=== PATIENT | female | born 1990 | race Caucasian/White ===

== ENCOUNTER 2017-06-20 15:17 | Inpatient (IN) | payer OTHER ==
[2017-06-20] MEDS ORDERED: NOREPINEPHRINE BITARTRATE 4,000 MCG in DEXTROSE 5%-WATER - 496 ML IV SCH (15:30)
--- NOTE | 2017-06-20 15:44 | CON.ID ---
Consult Consult Specialty:: infectious diseases Reason for Consultation:: meningitis - History of Present Illness History of Present Illness: 26 y/o young lady with a hx. of alopecia areata 12 years ago and ADHD, she was taking phenteramine/topamax off and on for weight loss and sertraline sporadically, was on BCP d/sergio a few weeks ago, last week oestrogen coated IUD placed. Pt. lived in [place] until January when she had her wedding, travelled to [place] for her honeymoon and settled in [place], [place]. This past Thursday she went hiking with her , woke up on Thursday with a diffuse, mild headach, towards the afternoon noted by to be confused but recovered, on Thursday noted yto be more confused, had several bouts of vomiting and was ataxic- taken to [facility] where she had a seizure and was subsequently intiubated/vented. On 06/18(from review of hospital notes) investigations and hospital course was as follows, the dx. being considered were viral encephalitis PRES.: 1) CSF- WBC-3, RBCs-4285, Protein-419, Glucose-83. 2) MRI C-spine 06/19- Cerebellar tonsils are herniated into the cervicomedullary junction with edema of the cord and central T2 hyperintensitylikely ischemia related to compression. 3) CT head- 06/18-diffuse cerebral edema with complete sulcal effacement and effacement of suprasellar cistern, quadrigeminal plate and fourth ventricle. Findings have progressed significantly from 06/07 and compared to MRI performed 5 hours prior to this study. 4) CT Angiogram 06/18-Diffuse cerebral edema with no blood flow seen in either intracranial internal carotid artery or in post. circulation. 5) NM perfusion scan 06/19 documented in a family meeting as"no flow c/w brain ". -Pt. transferred to this hospital by air ambulance for further care, discussed the case with neurosurgery and the thought process with meningitis is pres syndrome repeat ct scan looked at which shows diffuse edema of the brain plan is to do a ventriculostomy had a detailed discussion with the family about the sequence of events and the symptoms that followed patient received multiple abx including vanco and acylovir at the previous facility - History Source History Provided By: Family Member Limitations to Obtaining History: Clinical Condition Home Medications - Allergies Allergies/Adverse Reactions: Allergies Allergy/AdvReac Type Severity Reaction Status Date / Time Penicillins Allergy Rash Verified 06/20/17 18:13 - Home Medications Home Medications: Ambulatory Orders Phentermine HCl 06/20/17 Topamax 06/20/17 Zoloft 06/20/17 Review of Systems Unable to obtain ROS, reason: unable--intubated/ Physical Exam Constitutional: Yes: Other Eyes: Yes: Other (unreactive) Neck: Yes: Supple Cardiovascular: Yes: Regular Rate and Rhythm, Tachycardia Respiratory: Yes: Intubated, Mechanically Ventilated Gastrointestinal: Yes: Normal Bowel Sounds, Soft Renal/: Yes: Other (foleys in place) Musculoskeletal: Yes: Other Extremities: Yes: Other Neurological: Yes: Other Psychiatric: Yes: Other Imaging - Results Chest X-ray: Report Reviewed, Image Reviewed Cat Scan: Report Reviewed, Image Reviewed Assessment/Plan after looking at the complete history and looking at the scans from there and here i have a strong suspicion of viral mengitis and also looking at the LP report which favors that direction other possibility of pres syndrome i tyrell discussed wiht the family and mentioned that bacterial infection is a low possibility i tyrell mentioned that i am going to start her on abx as she is going for surgery for ventriculostomy also the prognosis is poor plan will start on abx' pls send csf for cx and snsitivity after the procedure close monitoring treat hypothermia and hyper natremia repeat ct scan in the morning rest as per icu mgmt discussed this all with the family in great detail cc time 95 min
[2017-06-20] MEDS ORDERED: AMPICILLIN NA/SULBACTAM NA 3 GM in SODIUM CHLORIDE 100 ML IVPB SCH (16:00)
[2017-06-20] MEDS ORDERED: VANCOMYCIN 1,250 MG in DEXTROSE 5%-WATER - 250 ML IVPB SCH (16:00)
[2017-06-20] MEDS ORDERED: ROCURONIUM BROMIDE 50 MG/5 ML VIAL ONE (16:35)
[2017-06-20 17:06] LABS: BASOPHIL 0.2 % (0-2.0); MCH 28.7 pg (25.7-33.7); MCHC 32.8 g/dl (32.0-36.0); MEAN CELL VOLUME 87.6 fl (80-96); MEAN PLT VOLUME 8.9 fl (7.5-11.1); NEUTROPHILS 79.2 % (42.8-82.8); PLATELET COUNT 180 K/MM3 (134-434); RDW 14.2 % (11.6-15.6); WHITE BLOOD COUNT 12.3 K/mm3 (4.0-10.0)
[2017-06-20 17:13] LABS: INR 1.46 (0.82-1.09); PROTHROMBIN TIME (PATIENT) 16.5 SEC (9.98-11.88)
[2017-06-20] MEDS ORDERED: LIDOCAINE 1%/EPI 1:100000 (50 ML MULTI DOSE VIAL) INF ONE (17:20)
[2017-06-20] MEDS ORDERED: VANCOMYCIN 1,000 MG VIAL (RESTRICTED TO ID ONLY) IVPB ONE (17:20)
[2017-06-20] MEDS ORDERED: AMPICILLIN NA/SULBACTAM NA 3 GM VIAL IVPB ONE (17:20)
[2017-06-20] MEDS ORDERED: DOXYCYCLINE HYCLATE 100 MG VIAL IVPB ONE (17:20)
[2017-06-20 17:27] LABS: ALBUMIN 2.7 g/dl (3.4-5.0); ANION GAP 6 (8-16); BILIRUBIN,TOTAL 0.3 mg/dL (0.2-1.0); CALCIUM 8.4 mg/dL (8.5-10.1); CO2 16 mmol/L (21-32); CREATININE 2.3 mg/dL (0.55-1.02); MAGNESIUM 3.1 mg/dL (1.8-2.4); SGOT/AST 47 U/L (15-37); SGPT/ALT 39 U/L (12-78); TOT PROT 6.6 g/dl (6.4-8.2)
[2017-06-20 17:28] LABS: ACTIVATED PTT 102.8 SECONDS (26.9-34.4); ALK PHOS 59 U/L (45-117)
[2017-06-20 17:31] LABS: GLUCOSE,RANDOM 370 mg/dL (74-106)
[2017-06-20 17:37] LABS: PHOSPHOROUS 0.6 mg/dL (2.5-4.9)
[2017-06-20 17:43] VITALS: BMI 27.5
[2017-06-20] MEDS ORDERED: SODIUM CHLORIDE 1,000 ML IV SCH (17:45)
[2017-06-20] MEDS ORDERED: INSULIN SLIDING SCALE (NOVOLOG) 1 VIAL SQ SCH (18:00)
--- NOTE | 2017-06-20 19:21 | CON.NEURO ---
Consult Consult Specialty:: NEUROLOGY-LENNY KONG Reason for Consultation:: Pt. transferred fro [place], [place] for neurologic care - History of Present Illness Chief Complaint: Pt. is comatose. History of Present Illness: 26 y/o young lady with a hx. of alopecia areata 12 years ago and ?? ADHD, she was taking phenteramine/topamax off and on for weight loss and sertraline sporadically, was on BCP d/sergio a few weeks ago, last week oestrogen coated IUD placed. Pt. lived in [place] until January when she had her wedding, travelled to [place] for her ev3, [place] and settled in [place], [place]. This past Thursday she went hiking with her , woke up on Thursday with a diffuse, mild headach, towards the afternoon noted by to be confused but recovered, on Thursday noyted yto be more confused, had several bouts of vomiting and was ataxic- taken to [facility] in [facility] where she had a seizure and was subsequently intiubated/vented. On 06/18(from review of hospital notes) investigations and hospital course was as follows, the dx. being considered were viral encephalitis PRES.: 1) CSF- WBC-3, RBCs-4285, Protein-419, Glucose-83. 2) MRI C-spine 06/19- Cerebellar tonsils are herniated into the cervicomedullary junction with edema of the cord and central T2 hyperintensitylikely ischemia related to compression. 3) CT head- 06/18-diffuse cerebral edema with complete sulcal effacement and effacement of suprasellar cistern, quadrigeminal plate and fourth ventricle. Findings have progressed significantly from 06/07 and compared to MRI performed 5 hours prior to this study. 4) CT Angiogram 06/18-Diffuse cerebral edema with no blood flow seen in either intracranial internal carotid artery or in post. circulation. 5) NM perfusion scan 06/19 documented in a family meeting as"no flow c/w brain ". -Pt. transferred to this hospital by air ambulance for further care, she had a craniotomy with placement of a ventricular drain, CSF drained thru vent.tube coagulated(likely due to high protein. - History Source History Provided By: Family Member (Pts. parents and .) Limitations to Obtaining History: Unresponsive - Smoking History Smoking history: Never smoked Have you smoked in the past 12 months: No Home Medications - Allergies Allergies/Adverse Reactions: Allergies Allergy/AdvReac Type Severity Reaction Status Date / Time Penicillins Allergy Rash Verified 06/20/17 18:13 - Home Medications Home Medications: Ambulatory Orders Phentermine HCl 06/20/17 Topamax 06/20/17 Zoloft 06/20/17 Physical Exam-Neuro Vital Signs: Vital Signs Temperature 98.6 F 06/20/17 17:21 Pulse Rate 102 H 06/20/17 17:21 Respiratory Rate 30 H 06/20/17 17:21 Blood Pressure 61/36 06/20/17 17:21 O2 Sat by Pulse Oximetry (%) 96 06/20/17 15:30 Labs: CBC, BMP 06/20/17 16:00 06/20/17 16:00 INR, PTT INR 1.46 (0.82-1.09) H 06/20/17 16:00 - Neuro Exam Level Of Consciousness: Yes: Comatose Eyes: Yes: Pupils Fixed/Dilated (Pupils 4mm dilated and fixed) Dominant Hand: Right Cranial Nerves II-XII Intact: No (Absent bilat. corneal reflexes, absent Dolls eye movements, absent gag reflex. No response) Gag: Absent DTR's: 0 Left Bicep, 0 Right Bicep, 0 Left Tricep, 0 Right Tricep, 0 Left Brachioradialis, 0 Right Brachioradialis, 0 Left Achilles, 0 Right Achilles Babinski: Absent Response to light touch: Abnormal (Absent response to deep pain) Imaging - Results Cat Scan: Report Reviewed (Diffuse cerebral edema with SAH.) Assessment/Plan Pt. is comatose with no evidence of cerebral or brain stem function on exam. NM perfusion scan does not reveal(performed at [facility] on ) perfusion of brain. Likely etiology of cerebral edema, increased intracranial pressure/herniation of tonsils is 1) viral encephalitis 2) PRES 3) ADEM(less likely). Pt. also has central DI and other metabolic derangements, Na- 182. Pts. prognosis is grim. Plan: 1) Nephrology consult/ID consult.. 2) Treat hypernatremia and hypothermia. 3) Supportive care for hemodynamic derangements. 4) Have requested family to obtain encephalitis panel reports from her previous admission in [place] 5) If able to obtain CSF thru vent. drain will send for CSF viral studies. 6) Repeat CT head in am 7) D/W Neurosurgery and family. Carlita Hill MD [phone].
[2017-06-20] MEDS ORDERED: DEXTROSE 5%-WATER - 1,000 ML IV SCH (20:45)
[2017-06-20] MEDS ORDERED: NOREPINEPHRINE BITARTRATE 4 MG/4 ML ML IV ONE ×2 (20:55→20:56)
[2017-06-20] MEDS ORDERED: CHLORHEXIDINE GLUCONATE 4% CLEANSER FOR DECOLONIZATION TP SCH (22:00)
[2017-06-20] MEDS ORDERED: DESMOPRESSIN ACETATE 4 MCG/ML AMP IVPB ONE ×2 (22:03)
[2017-06-20] MEDS ORDERED: SODIUM PHOSPHATE - 15 MM in DEXTROSE 5%-WATER - 250 ML IVPB ONE (22:06)
[2017-06-20] MEDS: MUPIROCIN 2% TOPICAL OINTMENT FOR DECOLONIZATION NS SCH (22:14)
[2017-06-20 22:15] LABS: URINE APPEARANCE SLCLOUDY; URINE BILIRUBIN NEGATIVE (NEGATIVE); URINE BLOOD 1+ (NEGATIVE); URINE COLOR LTYELLOW; URINE GLUCOSE (UA) 3+ (NEGATIVE); URINE KETONE NEGATIVE (NEGATIVE); URINE NITRITE NEGATIVE (NEGATIVE); URINE PROTEIN NEGATIVE (NEGATIVE); URINE UROBILINOGEN NEGATIVE mg/dL (0.2-1.0)
[2017-06-20] MEDS ORDERED: VASOPRESSIN 50 UNITS in SODIUM CHLORIDE 97.5 ML IVPB SCH ×2 (22:15→23:00)
[2017-06-20] MEDS ORDERED: VASOPRESSIN 20 UNITS/ML VIAL IV ONE (22:23)
--- NOTE | 2017-06-20 22:24 | HP ---
CHIEF COMPLAINT: diffuse cerebral edema, SAH, Brain herniation PCP: unknown HISTORY OF PRESENT ILLNESS: 26 yo previously healthy woman transferred from [place] to [facility]. Pt has Hx. of alopecia areata 12 years ago, ADHD, taking phenteramine/topamax off and on for weight loss and sertraline sporadically, was on BCP d/sergio a few weeks ago, last week estrogen coated IUD placed. Pt. lived in [place] until January, had her wedding, traveled to [place] for her honeymoon and settled in [place], [place]. This past Thursday she went hiking, subsequently developed diffuse, mild headache, and recovered, on Thursday noted to be more confused, had several bouts of vomiting and was ataxic. Subsequently admitted to [facility] in [place] where she had a seizure and was subsequently intubated/vented. investigations and hospital course listed below. The dx. being considered were viral encephalitis, PRES. - CSF- WBC-3, RBCs-4285, Protein-419, Glucose-83. - CT head- 06/18-diffuse cerebral edema with complete sulcal effacement and effacement of suprasellar cistern, quadrigeminal plate and fourth ventricle. Findings have progressed significantly from 06/07 and compared to MRI performed 5 hours prior to this study. -CT Angiogram 06/18-Diffuse cerebral edema with no blood flow seen in either intracranial internal carotid artery or in post. circulation. -NM perfusion scan 06/19 documented in a family meeting as"no flow c/w brain ". - MRI C-spine 06/19- Cerebellar tonsils are herniated into the cervicomedullary junction with edema of the cord and central T2 hyperintensitylikely ischemia related to compression. Pt. transferred to this hospital by air ambulance for further care, she had a craniotomy with placement of a ventricular drain, CSF drained thru vent.tube coagulated(likely due to high protein. ER course was notable for: (1) transfer to OR with right sided craniotomy and insertion of ventricular drain (2) admission to MICU from OR after craniotomy Recent Travel: [facility], [place] PAST MEDICAL HISTORY: none PAST SURGICAL HISTORY: right sided craniotomy with ventricular drain placement Social History: Smoking: unknown Alcohol:unknown Drugs: unknown Family History: unknwn Allergies - unknown Penicillins Allergy (Verified 06/20/17 18:13) Rash family stated no allergies.Hospital record from [place] stated maculopapular rash after penicillin administered HOME MEDICATIONS: Home Medications Medication Instructions Recorded Phentermine HCl 06/20/17 Topamax 06/20/17 Zoloft 06/20/17 REVIEW OF SYSTEMS - unable to obtain as patient is unresponsive PHYSICAL EXAMINATION Vital Signs - 24 hr 06/20/17 06/20/17 06/20/17 15:10 15:17 15:20 Temperature 98.6 F Pulse Rate 102 H 107 H 107 H Respiratory 30 H Rate Blood Pressure 61/36 100/70 107/70 O2 Sat by Pulse Oximetry (%) 06/20/17 06/20/17 06/20/17 15:25 15:30 15:55 Temperature Pulse Rate 118 H 122 H Respiratory 30 H 30 H 30 H Rate Blood Pressure 104/61 102/73 O2 Sat by Pulse 96 Oximetry (%) 06/20/17 06/20/17 06/20/17 16:05 16:20 16:40 Temperature Pulse Rate 140 H 140 H 113 H Respiratory 30 H 30 H 30 H Rate Blood Pressure 93/79 93/79 116/86 O2 Sat by Pulse Oximetry (%) 06/20/17 06/20/17 06/20/17 17:21 20:00 20:35 Temperature 98.6 F Pulse Rate 102 H 117 H Respiratory 30 H 30 H Rate Blood Pressure 61/36 O2 Sat by Pulse 100 Oximetry (%) GENERAL: unresponsive, HEAD: Normal with no signs of trauma. EYES: mid-dilated, fixed, not reactive to light EARS, NOSE, THROAT: ET tube NECK: no masses noted LUNGS: Breath sounds equal, clear to auscultation bilaterally. No wheezes, and no crackles. No accessory muscle use. HEART: Regular rate and rhythm, normal S1 and S2 without murmur, rub or gallop. ABDOMEN: Soft, nontender, not distended, decreased bowel sounds MUSCULOSKELETAL: Normal range of motion at all joints. No bony deformities or tenderness. No CVA tenderness. NEUROLOGICAL: unresponsive PSYCHIATRIC: unresponsive, unable to assess properly SKIN: cool, decreased turgor, no rashes appreciated Laboratory Results - last 24 hr 06/20/17 06/20/17 06/20/17 16:00 16:00 16:00 WBC 12.3 H RBC 4.29 Hgb 12.3 Hct 37.6 MCV 87.6 MCH 28.7 MCHC 32.8 RDW 14.2 Plt Count 180 MPV 8.9 Neutrophils % 79.2 Lymphocytes % 14.7 Monocytes % 5.9 Eosinophils % 0.0 Basophils % 0.2 PT with INR INR PTT (Actin FS) Sodium 182 H* Potassium 3.3 L Chloride 160 H* Carbon Dioxide 16 L Anion Gap 6 L BUN 24 H Creatinine 2.3 H Creat Clearance w eGFR 26.05 Random Glucose 370 H* Lactic Acid Calcium 8.4 L Phosphorus 0.6 L* Magnesium 3.1 H Total Bilirubin 0.3 AST 47 H ALT 39 Alkaline Phosphatase 59 Total Protein 6.6 Albumin 2.7 L Blood Type Antibody Screen 06/20/17 06/20/17 06/20/17 16:00 16:00 16:15 WBC RBC Hgb Hct MCV MCH MCHC RDW Plt Count MPV Neutrophils % Lymphocytes % Monocytes % Eosinophils % Basophils % PT with INR 16.50 H INR 1.46 H PTT (Actin FS) 102.8 H Sodium Potassium Chloride Carbon Dioxide Anion Gap BUN Creatinine Creat Clearance w eGFR Random Glucose Lactic Acid 2.9 H* Calcium Phosphorus Magnesium Total Bilirubin AST ALT Alkaline Phosphatase Total Protein Albumin Blood Type AB POSITIVE Antibody Screen Negative ASSESSMENT/PLAN: #Cerebral edema, cerebllar tonsil heriation, and SAH- may have been medication/ dug induced vs encephalitis induced. NM study at outside hospital with no brain flow. Pt transferred to [facility] via helicopter and underwent salvage craniotomy to relieve intracranial pressure. Patient was accepted to [facility] by Dr. Mckoy, who also performed neurosurgical intervention and placed right sided ventricular drain. I discussed care of plan with Dr. Mckoy, patient financial services manager, and neurologist friction welding machine operator. 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 About 15-20 L free water deficit. -free water -vasopressin drip -check BMP q 2hrs #DVT ppx -SCDs #Diet -NPO -fingersticks Visit type - Emergency Visit Emergency Visit: Yes ED Registration Date: 06/20/17 Care time: The patient presented to the Emergency Department on the above date and was hospitalized for further evaluation of their emergent condition. - New Patient This patient is new to me today: Yes Date on this admission: 06/20/17 - Critical Care Critical Care patient: Yes Total Critical Care Time (in minutes): 40 Critical Care Statement: The care of this patient involved high complexity decision making to prevent further life threatening deterioration of the patient 's condition and/or to evaluate & treat vital organ system(s) failure or risk of failure.
[2017-06-20] MEDS ORDERED: INSULIN REGULAR HUMAN 100 UNITS/ML *VIAL IVPUSH ONE (22:25)
--- NOTE | 2017-06-20 22:25 | CONSULT ---
Consult Consult Specialty:: Nephrology Reason for Consultation:: pedrito and hypernatremia - History of Present Illness Chief Complaint: pt sent in from [place] for suboccipital craniotomy History of Present Illness: Pt is a 26 year old female that was transferred to [facility] from [place]. She was sent in with cerebral edema and taken to the OR for craniotomy and insertion of ventricular drain. Pt was then tranferred to the ICU. I was called by neurology Dr Hill to evaluate her for hypernatremia and acute renal failure. Pt is intubated and mechanically ventilated. She has records that were sent with her from [place]. Reviewed records from outside facility. Records reveal that patient was pronounced brain at the outside facility. Nuclear scan from 06/19 shows results consistent with brain , as per report. Pt was initially admitted to the [facility] with vomiting, hypothermia, and altered mental status. It was reported that she had nausea and vomiting for several days. Pt also had seizure. She was intubated in the outside hospital. It was reported in the transfer records that her said she took phentermine and sertraline on 06/12 and 06/15. I called and also discussed the care with Dr Mckoy who operated on her in our facility. Pt was given acyclovir and vanco amongst other meds in the transfer record. On 06/18 her health type technician was 0.71. - History Source History Provided By: Medical Record - Past Surgical History Additional Surgical History: IUD - Smoking History Smoking history: Never smoked Have you smoked in the past 12 months: No Home Medications - Allergies Allergies/Adverse Reactions: Allergies Allergy/AdvReac Type Severity Reaction Status Date / Time Penicillins Allergy Rash Verified 06/20/17 18:13 - Home Medications Home Medications: Ambulatory Orders Phentermine HCl 06/20/17 Topamax 06/20/17 Zoloft 06/20/17 Family Disease History - Family Disease History Family History: Unable to Obtain Review of Systems Unable to obtain ROS, reason: pt lethargic Physical Exam Vital Signs: Vital Signs Temperature 98.6 F 06/20/17 17:21 Pulse Rate 117 H 06/20/17 20:35 Respiratory Rate 30 H 06/20/17 20:00 Blood Pressure 61/36 06/20/17 17:21 O2 Sat by Pulse Oximetry (%) 100 06/20/17 20:35 Constitutional: Yes: Calm Eyes: Yes: Other (pupils not reactive) HENT: Yes: Other (s/p shunt) Cardiovascular: Yes: S1, S2 Respiratory: Yes: Mechanically Ventilated Gastrointestinal: Yes: Soft Renal/: Yes: Briceno Present Musculoskeletal: Yes: Muscle Weakness Edema: LUE: Trace, RUE: Trace Neurological: Yes: Unresponsive Labs: CBC, BMP 06/20/17 16:00 06/20/17 16:00 Laboratory Tests 06/20/17 06/20/17 06/20/17 16:00 16:00 16:00 WBC 12.3 H Hgb 12.3 Plt Count 180 Sodium 182 H* Potassium 3.3 L Chloride 160 H* Carbon Dioxide 16 L Anion Gap 6 L BUN 24 H Creatinine 2.3 H Random Glucose 370 H* Lactic Acid Calcium 8.4 L Phosphorus 0.6 L* Magnesium 3.1 H Total Bilirubin 0.3 AST 47 H ALT 39 Alkaline Phosphatase 59 Total Protein 6.6 Albumin 2.7 L 06/20/17 16:15 WBC Hgb Plt Count Sodium Potassium Chloride Carbon Dioxide Anion Gap BUN Creatinine Random Glucose Lactic Acid 2.9 H* Calcium Phosphorus Magnesium Total Bilirubin AST ALT Alkaline Phosphatase Total Protein Albumin Imaging - Results Cat Scan: Report Reviewed (increased intracraneal pressure) Assessment/Plan Current Medications Generic Name Dose Route Start Last Admin Trade Name Howardq PRN Reason Stop Dose Admin Chlorhexidine Gluconate 1 applic 06/20/17 22:00 06/20/17 22:14 Hibiclens For Decolonization - TP 1 applic HS NAVYA Administration Norepinephrine Bitartrate 4, 500 mls @ 37.5 mls/hr 06/20/17 15:30 06/20/17 16: 05 000 mcg/ Dextrose IV 20 mcg/min TITR NAVYA Titration Protocol 5 MCG/MIN Doxycycline Hyclate 100 mg/ 100 mls @ 100 mls/hr 06/20/17 22:00 Dextrose IVPB BID NAVYA Vancomycin HCl 1,250 mg/ 250 mls @ 250 mls/hr 06/20/17 16:00 06/20/17 22:12 Dextrose IVPB Not Given DAILY NAVYA Protocol Dextrose 1,000 mls @ 75 mls/hr 06/20/17 20:45 D5w - IV .[id number] NAVYA Vasopressin 50 units/ Sodium 100 mls @ 24 mls/hr 06/20/17 22:15 Chloride IVPB TITR NAVYA Protocol 0.2 UNITS/MIN Sodium Phosphate 15 mm/ 255 mls @ 62.5 mls/hr 06/20/17 22:06 Dextrose IVPB 06/21/17 02:10 ONCE ONE Desmopressin Acetate 20 mcg/ 55 mls @ 110 mls/hr 06/20/17 22:30 Sodium Chloride IVPB 06/20/17 22:59 ONCE ONE Mupirocin 1 applic 06/20/17 22:00 06/20/17 22:14 Bactroban Ointment (For Decolonization) - NS 06/25/17 21:59 1 applic BID NAVYA Administration Impression 1. hypernatremia 2. cerebral edema 3. s/p craniotomy and shunt 4. acute renal failure 5. acute respiratory failure 6. shock/hypotension 7. hypophosphatemia 8. hypokalemia 9. 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
[2017-06-20] MEDS ORDERED: INSULIN REGULAR HUMAN 100 UNITS/ML *VIAL ONE (22:29)
[2017-06-20] MEDS ORDERED: DESMOPRESSIN ACETATE 20 MCG in SODIUM CHLORIDE 50 ML IVPB ONE (22:30)
[2017-06-20 22:34] LABS: URINE BACTERIA RARE /hpf (NONE SEEN); URINE MUCUS RARE; URINE RBC 2 /hpf (0-3); URINE WBC 3 /hpf (3-5); YEAST RARE
[2017-06-20 22:44] LABS: ALBUMIN 2.4 g/dl (3.4-5.0); ALK PHOS 54 U/L (45-117); ANION GAP 8 (8-16); BILIRUBIN,TOTAL 0.4 mg/dL (0.2-1.0); CALCIUM 7.7 mg/dL (8.5-10.1); CO2 15 mmol/L (21-32); CREATININE 2.2 mg/dL (0.55-1.02); SGOT/AST 50 U/L (15-37); SGPT/ALT 40 U/L (12-78); TOT PROT 5.4 g/dl (6.4-8.2)
[2017-06-20] MEDS ORDERED: INSULIN REGULAR 100 UNITS in SODIUM CHLORIDE 99 ML IVPB SCH (22:45)
[2017-06-20 22:46] LABS: GLUCOSE,RANDOM 511 mg/dL (74-106)
[2017-06-20] MEDS ORDERED: POTASSIUM CHLORIDE ORAL LIQUID 20 MEQ/15 ML PO ONE (22:49)
[2017-06-20] MEDS: DOXYCYCLINE INJECTION 100 MG in DEXTROSE 5%-WATER - 100 ML IVPB SCH (22:57)
[2017-06-20] MEDS ORDERED: DEXTROSE 5%-0.45% SALINE 1,000 ML IV SCH (23:00)
[2017-06-20] MEDS ORDERED: D5-1/2NS+20 MEQ KCL - 1,000 ML IV SCH (23:00)
[2017-06-21] MEDS: OCULAR LUBRICANT OPHTHALMIC OINTMENT 7 GM TUBE OU SCH ×2 (01:00→09:56)
[2017-06-21] MEDS: methylPREDNISolone NA SUCC 40 MG/1 ML VIAL IVPB SCH ×2 (02:25→09:56)
[2017-06-21] MEDS ORDERED: ENALAPRILAT DIHYDRATE 2.5 MG/2 ML VIAL IVPB ONE (02:39)
[2017-06-21 02:47] LABS: URINE APPEARANCE CLOUDY; URINE BILIRUBIN NEGATIVE (NEGATIVE); URINE BLOOD NEGATIVE (NEGATIVE); URINE COLOR YELLOW; URINE GLUCOSE (UA) 3+ (NEGATIVE); URINE KETONE NEGATIVE (NEGATIVE); URINE NITRITE NEGATIVE (NEGATIVE); URINE PROTEIN NEGATIVE (NEGATIVE); URINE UROBILINOGEN NEGATIVE mg/dL (0.2-1.0)
[2017-06-21 03:14] LABS: OSMOLALITY,SERUM 382 mosm/kg (278-305)
[2017-06-21 03:36] LABS: ANION GAP 13 (8-16); CALCIUM 7.8 mg/dL (8.5-10.1); CO2 14 mmol/L (21-32); CREATININE 2.1 mg/dL (0.55-1.02)
[2017-06-21 03:40] LABS: GLUCOSE,RANDOM 459 mg/dL (74-106)
[2017-06-21] MEDS ORDERED: SODIUM CHLORIDE 0.45% 1,000 ML IV SCH ×2 (04:15→09:00)
[2017-06-21] MEDS ORDERED: DEXTROSE 5%-0.45% SALINE 1,000 ML IV SCH (04:15)
[2017-06-21] MEDS: KCL 10 MEQ IVPB 100 ML IVPB SCH ×3 (04:31→06:42)
[2017-06-21] MEDS: INSULIN REGULAR 100 UNITS in SODIUM CHLORIDE 99 ML IVPB SCH ×2 (05:23→11:00)
[2017-06-21] MEDS ORDERED: NOREPINEPHRINE BITARTRATE 8,000 MCG in DEXTROSE 5%-WATER - 492 ML IV SCH (05:30)
[2017-06-21 06:12] LABS: MEAN CELL VOLUME 85.4 fl (80-96); MEAN PLT VOLUME 8.9 fl (7.5-11.1); PLATELET COUNT 128 K/MM3 (134-434); RDW 14.1 % (11.6-15.6); WHITE BLOOD COUNT 11.1 K/mm3 (4.0-10.0)
[2017-06-21 06:58] LABS: ALBUMIN 2.3 g/dl (3.4-5.0); ALK PHOS 57 U/L (45-117); ANION GAP 12 (8-16); BILIRUBIN,TOTAL 0.4 mg/dL (0.2-1.0); CALCIUM 7.8 mg/dL (8.5-10.1); CO2 16 mmol/L (21-32); CREATININE 1.8 mg/dL (0.55-1.02); MAGNESIUM 2.1 mg/dL (1.8-2.4); SGOT/AST 43 U/L (15-37); SGPT/ALT 40 U/L (12-78); TOT PROT 5.3 g/dl (6.4-8.2)
[2017-06-21 07:03] LABS: GLUCOSE,RANDOM 355 mg/dL (74-106)
[2017-06-21 07:04] LABS: PHOSPHOROUS 0.7 mg/dL (2.5-4.9)
--- NOTE | 2017-06-21 07:57 | PN ---
Progress Note (short form) - Note Progress Note: Laboratory Tests 06/21/17 01:30 Serum Osmolality 382 H Urine Osmolality 598 Urine findings are not consistent with DI. Cont fluids and continue to monitor sodium.
--- NOTE | 2017-06-21 08:09 | PN ---
Progress Note (short form) - Note Progress Note: Subjective: The patient was seen and examined at the bedside, she is unresponsive with endotracheal tube in place. 24 hour events: CT head: subarachnoid hemorrhage and extra-axial air with evidence of increased intracranial pressure. No definite evidence of herniation S/p craniotomy and insertion of external ventricular drain Received Doxycycline 500mg IVPB, Vancomycin 1,000mg IVPB, Unasyn 3gm IVPB in OR Na 182->177->176->177. Remains on 1/2 NS @ 75cc/hr Potassium 2.9->3.2, 40meq oral liquid, 30meq IVPB given Called by radiologist at 0730 that chest x-ray revealed left pneumothorax, subcutaneous emphasema over right clavicle and ET tube tip close to elana. Instructed RN to pull back on ET tube 2cm per radiology. Called and spoke to Dr. Gonzales at 07:39 (CT surgery circulation assistant). Informed him of chest x-ray findings. He states will review imaging. Vent settings: 30/450/5/50 Drips: Insulin Regular: 10u/hr 1/2 NS: 75cc/hr Norepinephrine: 10mcg/min Vasopressin: 2.4u/hr Vital signs: BP: 113/86 Resp: 30 O2: 100% Temp: 98.5 HR: 97 Current Medications Generic Name Dose Route Start Last Admin Trade Name Freq PRN Reason Stop Dose Admin Artificial Tears 1 applic 06/21/17 00:15 06/21/17 01:00 Lacri-Lube Eye Ointment - OU 1 applic BID NAVYA Administration Chlorhexidine Gluconate 1 applic 06/20/17 22:00 06/20/17 22:14 Hibiclens For Decolonization - TP 1 applic HS NAVYA Administration Doxycycline Hyclate 100 mg/ 100 mls @ 100 mls/hr 06/20/17 22:00 06/20/17 22:57 Dextrose IVPB 100 mls/hr BID NAVYA Administration Vancomycin HCl 1,250 mg/ 250 mls @ 250 mls/hr 06/20/17 16:00 06/20/17 22:12 Dextrose IVPB Not Given DAILY NAVYA Protocol Vasopressin 50 units/ Sodium 100 mls @ 4.8 mls/hr 06/20/17 23:00 06/20/17 23:21 Chloride IVPB 4.8 mls/hr ASDIR NAVYA Administration Protocol 2.4 UNITS/HR Sodium Chloride 1,000 mls @ 75 mls/hr 06/21/17 04:15 06/21/17 04:31 1/2 Normal Saline IV 75 mls/hr ASDIR NAVYA Administration Insulin Human Regular 100 100 mls @ 10 mls/hr 06/21/17 05:20 06/21/17 05:23 units/ Sodium Chloride IVPB 10 mls/hr TITR NAVYA Administration Protocol 10 UNITS/HR Norepinephrine Bitartrate 8, 500 mls @ 18.75 mls/hr 06/21/17 05:30 06/21/17 05: 24 000 mcg/ Dextrose IV 37.5 mls/hr TITR NAVYA Administration Protocol 5 MCG/MIN Methylprednisolone Sodium Succinate 40 mg 06/21/17 02:00 06/21/17 02:25 Solu-Medrol - IVPB 40 mg Q8H-IV NAVYA Administration Mupirocin 1 applic 06/20/17 22:00 06/20/17 22:14 Bactroban Ointment (For Decolonization) - NS 06/25/17 21:59 1 applic BID NAVYA Administration Objective: Vital Signs Period Temp Pulse Resp BP Sys/Wilson Pulse Ox Last 24 Hr 92.9 F-98.6 F 88-140 30-30 61-127/36-89 96-100 Physical Exam: General: NAD, unresponsive, intubated Head: External ventricular drain in place, clear yellowish fluid in proximal drain with white/blood tinged matter. Distal drain empty HEENT: B/l pupils dilated (7mm) and fixed, not reactive to light Neck: subcutaneous emphasema above right clavicle Lungs: Decreased breath sounds on the left Heart: Tachycardia, S1S2 Abd: Soft, non-tender, non-distended : Briceno catheter in place Neuro: Flaccid extremities. Unresponsive to verbal or painful stimuli CBCD WBC 11.1 K/mm3 (4.0-10.0) H 06/21/17 05:10 RBC 3.23 M/mm3 (3.60-5.2) L D 06/21/17 05:10 Hgb 9.4 GM/dL (10.7-15.3) L D 06/21/17 05:10 Hct 27.6 % (32.4-45.2) L D 06/21/17 05:10 MCV 85.4 fl (80-96) 06/21/17 05:10 MCHC 34.0 g/dl (32.0-36.0) 06/21/17 05:10 RDW 14.1 % (11.6-15.6) 06/21/17 05:10 Plt Count 128 K/MM3 (134-434) L D 06/21/17 05:10 MPV 8.9 fl (7.5-11.1) 06/21/17 05:10 CMP Sodium 177 mmol/L (136-145) H* 06/21/17 05:10 Potassium 3.2 mmol/L (3.5-5.1) L 06/21/17 05:10 Chloride 149 mmol/L (98-107) H 06/21/17 05:10 Carbon Dioxide 16 mmol/L (21-32) L 06/21/17 05:10 Anion Gap 12 (8-16) 06/21/17 05:10 BUN 20 mg/dL (7-18) H 06/21/17 05:10 Creatinine 1.8 mg/dL (0.55-1.02) H 06/21/17 05:10 Creat Clearance w eGFR 34.57 (>60) 06/21/17 05:10 Random Glucose 355 mg/dL (74-106) H* D 06/21/17 05:10 Calcium 7.8 mg/dL (8.5-10.1) L 06/21/17 05:10 Total Bilirubin 0.4 mg/dL (0.2-1.0) 06/21/17 05:10 AST 43 U/L (15-37) H 06/21/17 05:10 ALT 40 U/L (12-78) 06/21/17 05:10 Alkaline Phosphatase 57 U/L (45-117) 06/21/17 05:10 Total Protein 5.3 g/dl (6.4-8.2) L 06/21/17 05:10 Albumin 2.3 g/dl (3.4-5.0) L 06/21/17 05:10 This is a 26 year old female with no significant PMHx who was transferred to [facility] from [facility] in [facility] on . The patient was in good health with recent travels to [place]/ [place], [place] until 06/17. On Thursday, 06/15 she went on a hike and subsequently developed diffuse, mild headache and recovered. On 06/17, she became more confused with vomiting and was ataxic. On route to [facility] in the ambulance she had a seizure and was intubated and vented. Imaging at [facility] as follows: - CSF: WBC-3, RBCs-4285, Protein-419, Glucose-83. - CT head- 06/18-diffuse cerebral edema with complete sulcal effacement and effacement of suprasellar cistern, quadrigeminal plate and fourth ventricle. Findings have progressed significantly from 06/07 and compared to MRI performed 5 hours prior to this study. -CT Angiogram 06/18-Diffuse cerebral edema with no blood flow seen in either intracranial internal carotid artery or in post. circulation. - NM perfusion scan 06/19 documented in a family meeting as "no flow c/w brain ". - MRI C-spine 06/19- Cerebellar tonsils are herniated into the cervicomedullary junction with edema of the cord and central T2 hyperintensitylikely ischemia related to compression. According to palliative care notes from 06/19, the family was not accepting of the diagnosis of brain . The patient was transferred to [facility] where she had a head CT that showed subarachnoid hemorrhage and extra-axial air with evidence of increased intracranial pressure. No definite evidence of herniation. She had craniotomy and insertion of external ventricular drain with Dr. Mckoy on 06/20. Plan: 1) Brain (records from [facility]) - CTA head an neck 06/18/17: Diffuse cerebral edema with no blood flow seen in either intracranial internal carotid artery or in the posterior circularion - Nuclear medicine brain with vascular flow 06/18/17: No intracranial vascular activity. No flow above the skull base - Nuclear medicine brain with vascular flow 06/19/17: No flow is identified above the skull base, facial uptake is hot relative to the remainder of the head. No intracranial activity is present. Findings consistent with brain - MRI with contrast 06/19/17: Continued absence of intracranial venous flow is attributed to increased intracranial pressure - MRI cervical spine 06/19/17: Herniation of the cerebellar tonsils into the cervicomedullary canal causing effacement of CSF and indentation along the posterior aspect of the proximal cervical cord. The cord is edematous from C2- C4 and demonstrates intrinsic signal consistent with ischemia. Flow artifact is noted in the CSF posterior to the upper cervical cord 2) Cerebral edema - S/p craniotomy with decompression and external ventricular drain placement on 06/20/17 - No brainstem activity noted today 3) Respiratory failure - Remains intubated - Weaned off Vasopressin today - Remains on Levophed, maintain MAP >65 4) Large left pneumothorax - Emergent left pigtail placed this morning - Repeat chest x-ray with no pneumothorax s/p pigtail placement 5) Severe hypernatremia: - Per nephrology: no evidence of DI at this time - Continue 1/2NS @75cc/hr - Monitor BMP q2h 6) Hyperglycemia: - On Insulin gtt, titrate for BGM 140-180 - BGM q2h Discussed with Dr. Mckoy, plan for today was repeat CT head at 2pm and then Dr. Mckoy would perform repeat neuro exam. Per Dr. Mckoy's discussion with family, they are requesting transfer to [facility] and do not want any further imaging here. Per Dr. Mckoy, Dr. Akhil Salas is accepting physician at [facility]. is aware of transfer. Visit type - Emergency Visit Emergency Visit: Yes ED Registration Date: 06/20/17 Care time: The patient presented to the Emergency Department on the above date and was hospitalized for further evaluation of their emergent condition. - New Patient This patient is new to me today: Yes Date on this admission: 06/21/17 - Critical Care Critical Care patient: Yes Total Critical Care Time (in minutes): 65 Critical Care Statement: The care of this patient involved high complexity decision making to prevent further life threatening deterioration of the patient 's condition and/or to evaluate & treat vital organ system(s) failure or risk of failure.
--- NOTE | 2017-06-21 09:51 | CONSULT ---
Consult Consult Specialty:: PULM/CCM Referred by:: CHEYNENE Reason for Consultation:: Suspected brain - History of Present Illness Chief Complaint: Transferred for further evaluation of possible brain History of Present Illness: 26 F, previous history of alopecia areata 12 years ago, ADHD, apparently taking phenteramine/topamax off and on for weight loss and sertraline. Recent discontinuation of control and placement of an estrogen coated IUD. Recent marriage with travel to [place] for her honeymoon. Was residing in [place], [place]. Rapid onset of acute respiratory failure, seizures, and apparent severe neurologic injury. Worked at the institution in [place] was apparently consistent with brain . CT head: 06/18: Reported as : diffuse cerebral edema with complete sulcal effacement and effacement of suprasellar cistern, quadrigeminal plate and fourth ventricle. Findings have progressed significantly from 06/07 and compared to MRI performed 5 hours prior to this study. CT Angiogram 06/18: Reported as diffuse cerebral edema with no blood flow seen in either intracranial internal carotid artery or in post. circulation. NM perfusion scan 06/19 : Reported as no flow c/w brain MRI C-spine 06/19 : Reported as Cerebellar tonsils are herniated into the cervicomedullary junction with edema of the cord and central T2 hyperintensitylikely ischemia related to compression. Patient transferred to [facility] by air ambulance for further care after being accepted by [facility]. She had a craniotomy with placement of a ventricular drain. Currently seen in the ICU. She is not responsive. She is on NE 10 mcq and Vasopressin 2.4 units per hour. Patient had a left subclavian TLC inserted in the institution in [place]. Our admission CXR revealed a large left PTX, which may have happened during the flight due to increased risk of barotrauma. Left pigtail decompression performed emergently at the bedside. - History Source History Provided By: Transfer Record Limitations to Obtaining History: Clinical Condition - Past Surgical History Additional Surgical History: IUD - Smoking History Smoking history: Never smoked Have you smoked in the past 12 months: No Home Medications - Allergies Allergies/Adverse Reactions: Allergies Allergy/AdvReac Type Severity Reaction Status Date / Time Penicillins Allergy Rash Verified 06/20/17 18:13 - Home Medications Home Medications: Ambulatory Orders Phentermine HCl 06/20/17 Topamax 06/20/17 Zoloft 06/20/17 Review of Systems Unable to obtain ROS, reason: not able to provide Physical Exam Vital Signs: Vital Signs Temperature 98.0 F 06/21/17 09:00 Pulse Rate 95 H 06/21/17 09:00 Respiratory Rate 30 H 06/21/17 09:00 Blood Pressure 128/93 06/21/17 09:00 O2 Sat by Pulse Oximetry (%) 100 06/21/17 08:00 Constitutional: Yes: Other (intubated and non-responsive) Labs: CBC, BMP 06/21/17 05:10 Imaging - Results Chest X-ray: Report Reviewed, Image Reviewed Problem List - Problems (1) Brain Code(s): G93.82 - BRAIN (2) Acute respiratory failure Code(s): J96.00 - ACUTE RESPIRATORY FAILURE, UNSP W HYPOXIA OR HYPERCAPNIA (3) Pneumothorax, left Code(s): J93.9 - PNEUMOTHORAX, UNSPECIFIED Assessment/Plan Will need to D/W NS further management. Very unfortunate situation, but need to D/W family appropriate next steps. Dr Le Critical care time spent in reviewing chart, evaluating patient and formulating plan - 36 minutes.
[2017-06-21 09:54] LABS: ANION GAP 6 (8-16); CALCIUM 7.8 mg/dL (8.5-10.1); CO2 18 mmol/L (21-32); GLUCOSE,RANDOM 238 mg/dL (74-106)
[2017-06-21] MEDS: MUPIROCIN 2% TOPICAL OINTMENT FOR DECOLONIZATION NS SCH (09:56)
[2017-06-21 09:57] LABS: CREATININE 1.6 mg/dL (0.55-1.02)
[2017-06-21] MEDS: DOXYCYCLINE INJECTION 100 MG in DEXTROSE 5%-WATER - 100 ML IVPB SCH (09:57)
[2017-06-21] MEDS ORDERED: POTASSIUM PHOSPHATE 15 MM in SODIUM CHLORIDE 250 ML IVPB ONE (10:00)
[2017-06-21] MEDS ORDERED: INSULIN REGULAR 100 UNITS in SODIUM CHLORIDE 99 ML IVPB SCH (11:21)
[2017-06-21 11:23] LABS: ANION GAP 8 (8-16); CALCIUM 7.6 mg/dL (8.5-10.1); CO2 17 mmol/L (21-32); CREATININE 1.5 mg/dL (0.55-1.02); GLUCOSE,RANDOM 179 mg/dL (74-106)
[2017-06-21 11:54] LABS: URINE LEUK ESTERASE Negative (NEGATIVE)
[2017-06-21 12:43] LABS: URINE LEUK ESTERASE Negative (NEGATIVE)
[2017-06-21 13:11] LABS: ANION GAP 12 (8-16); CALCIUM 7.4 mg/dL (8.5-10.1); CO2 17 mmol/L (21-32); CREATININE 1.4 mg/dL (0.55-1.02); GLUCOSE,RANDOM 142 mg/dL (74-106)
--- NOTE | 2017-06-21 14:49 | PN ---
Progress Note (short form) - Note Progress Note: 6 y/o young lady with a hx. of alopecia areata 12 years ago and ?? ADHD, she was taking phenteramine/topamax off and on for weight loss and sertraline sporadically, was on BCP d/sergio a few weeks ago, last week oestrogen coated IUD placed. Pt. lived in [place] until January when she had her wedding, travelled to [place] for her honeymoon and settled in [place], [place]. This past Thursday she went hiking with her , woke up on Thursday with a diffuse, mild headach, towards the afternoon noted by to be confused but recovered, on Thursday noyted yto be more confused, had several bouts of vomiting and was ataxic- taken to [facility] in [facility] where she had a seizure and was subsequently intiubated/vented. On 06/18(from review of hospital notes) investigations and hospital course was as follows, the dx. being considered were viral encephalitis PRES.: 1) CSF- WBC-3, RBCs-4285, Protein-419, Glucose-83. 2) MRI C-spine 06/19- Cerebellar tonsils are herniated into the cervicomedullary junction with edema of the cord and central T2 hyperintensitylikely ischemia related to compression. 3) CT head- 06/18-diffuse cerebral edema with complete sulcal effacement and effacement of suprasellar cistern, quadrigeminal plate and fourth ventricle. Findings have progressed significantly from 06/07 and compared to MRI performed 5 hours prior to this study. 4) CT Angiogram 06/18-Diffuse cerebral edema with no blood flow seen in either intracranial internal carotid artery or in post. circulation. 5) NM perfusion scan 06/19 documented in a family meeting as"no flow c/w brain ". -Pt. transferred to this hospital by air ambulance for further care, she had a craniotomy with placement of a ventricular drain, CSF drained thru vent.tube coagulated(likely due to high protein. BP-128/28 Temp-98.1 Pt. remains comatose, unresponsive to all stimulii. -Absent corneal, oculocephalic and gag reflexes.Pupils are dilated and fixed -Absent peripheral reflexes. Left toe is upgoing with vigorous stimulation. A&P: Pts. prognosis remains grim, the family has decided to have patient transferred to [facility]. No further neurologic intervention indicated at this time.
--- NOTE | 2017-06-21 15:01 | CONSULT ---
Consult - text type - Consultation Consultation Note: Sofi Ashley is a 26 year old [place]ron[place] female who was enjoying a state of good health until Thursday of this week. She recently was and relocated to [place], [place]. She developed a rapidly progressing deterioration of her mental status on Thursday. After exerting herself while hiking, she felt light headed and short of breath. She reportedly progressed in terms of diminution of consciousness and ultimately had a seizure and was intubated. The time course and history of these events was collected from various descriptions of her illness provided by her spouse and multiple family members. Some details varied, as may be expected, but generally the description is of a healthy young woman with no active medical problems who progressed to a comatose state with at least one witnessed seizure. The patient was admitted to [facility] in [place] and was treated in the ICU. The differential diagnosis was reported to include seizures, stroke and meningitis. I was contacted about this patient on the afternoon of June 19 by multiple family members and friends. General disatisfaction with the care at [facility] was expressed and all parties requested that I consider accepting the patient for further care. At this point, increased intracranial pressure was described and an MRI report suggesting cervicomedullary junction compression was described. I was informed of a young patient, with no prior history and a short course of illness. I was told that the hospital she was in had limited ability to care for her and transfer to [facility] was requested. I did describe that other [facility] centers were closer to them and may be easier for them to reach, however, I would be willing to discuss transfer. While transfer arrangements were being made, I spoke with an ICU physician from [facility], Dr. Uriah Carvajal, who described a very different picture. He told me that the patient was brain and had no reflexes and that a CT of the head showed complete loss of the skaggs-white distinction and effacement of all ventricles. Given this description, I informed the family that transfer would not be appropriate. I was told that the patient still had some reflexes and was posturing. To reconcile this, I asked to review the imaging studies and was told that Dr. Carvajal was refusing to allow the family to share them with me. When informed that I could not accept the patient without reconciling this information, the family was able to surreptitiously record some of the imaging and I was able to see clear skaggs-white distinction and ventricles despite a tight appearing brain. Limited views from the MRI suggested tonsilar descent, perhaps greater than from ICP alone (?Chiari?). While I was not in a position to examine the patient to resolve the difference in clinical scenarios described by the family and Dr. Carvajal, the CT was markedly different than described and I found the reluctance to share it peculiar. The CT did appear to suggest some hypodensity in the Posterior white matter and my differential diagnosis included Encephalitis such as PRES/ADEM, seizure aggravating a Chiari malformation or some other meningitis/inflamatory condition. The MRI report described subcortical irregularity, but the entire study was not available for my review. Given the CT appearance of the brain and the reports of some persisting brain activity, I accepted the patient in transfer. The patient arrived at [facility] by Air Ambulance/[facility] transfer. This was complicated by the need for the flight to divert from [facility] to [facility] in [place]. The patient arrived at our institution having had a 20-30 minute period of hypotension due to lack of Levophed. Upon arrival, the outside imaging discs were furnished, however, despite extensive efforts with multiple computers, could not be reviewed. A new CT was obtained which showed preservation of the skaggs white distinction, however , the ventricles were even smaller and the CSF was dense. These findings may be pest control service representative of progressive encephalopathy or ischemia secondary to her recent hypotensive episode. I had a long discussion with the family concerning the dire nature of this case and that while recovery may be possible, "it would take a miracle." I explained that if there was no massive stroke and the ICP and cervicomedullary junction compression could be relieved, then treatment of an underlying encephalitis/ meningitis might allow for some chance at a meaningful recovery after extensive ICU support. I explained that surgical options such as CSF diversion from an EVD or suboccipital decompression to relieve the brainstem compression might be helpful in this desperate case. The family is medically savvy and was able to discuss her condition in a sophisticated manner. They understand the dire nature of her condition, however, implored me to help their daughter. I discussed an initial intervention of EVD placement with the ability to send CSF for examination and to monitor and treat the ICP as a first step and planned to reserve suboccipital decompression until after this was performed. The family strongly preferred that all efforts be made on an expedited basis and I agreed that if I could decompress her ventricles, and she was tolerating the prone position, that I would consider a suboccipital decompression as well. I explained the risks, benefits and alternatives to these procedures in great detail. The risks included, but were not limited to: , coma, paralysis, bleeding, infection, CSF leakage possibly requiring spinal drainage or additional surgery and failure to improve. I explained the unique risks of difficulty in cannulating a tiny ventricle and they verbalize an understanding. All questions were answered. Informed consent was obtained. This discussion was made in conjunction with several other members of the Medical staff with ICU, Surgical and Neurology backgrounds. All were in agreement with proceeding as described. The patient's family was offered the option of seeking another opinion or another surgeon. Although large in numbers and with a variety of backgrounds in several medical disciplines, there was uniform agreement with this plan and they asked that I proceed as soon as possible. After the discussion, the patient's father, who is a Hardboard Factory Worker/Oncologist approached me and volunteered: "I know that this isn't a 10% chance, a 1% chance or maybe not a 1 in 1000 chance, but we want this....we have nothing to lose." On the morning of June 21, I examined the patient and discussed her clinical course with the family in detail. I described my plan to obtain a CT to evaluate whether the hypotensive episode resulted in infarction and the position of the EVD which drained CSF under great pressure upon insertion and then quickly stopped draining due to heavy proteinaceous material. I explained that I wanted to evaluate her brainstem functioning well after her anesthesia and muscle relaxants had worn off.
[2017-06-21 15:23] LABS: ANION GAP 12 (8-16); CALCIUM 7.2 mg/dL (8.5-10.1); CO2 17 mmol/L (21-32); CREATININE 1.3 mg/dL (0.55-1.02); GLUCOSE,RANDOM 92 mg/dL (74-106)
--- NOTE | 2017-06-21 15:37 | PN ---
Progress Note, Physician History of Present Illness: Pt seen and examined at bedside. She remains in the ICU. Pt remains intubated. Family are at bedside and care was discussed with them. She is going to be transferred to [facility] today. - Current Medication List Current Medications: Active Medications Artificial Tears (Lacri-Lube Eye Ointment -) 1 applic OU BID NAVYA Last Admin: 06/21/17 09:56 Dose: 1 applic Chlorhexidine Gluconate (Hibiclens For Decolonization -) 1 applic TP HS NAVYA Last Admin: 06/20/17 22:14 Dose: 1 applic Doxycycline Hyclate 100 mg/ (Dextrose) 100 mls @ 100 mls/hr IVPB BID NAVYA Last Admin: 06/21/17 09:57 Dose: 100 mls/hr Vasopressin 50 units/ Sodium (Chloride) 100 mls @ 4.8 mls/hr IVPB ASDIR NAVYA; 2.4 UNITS/HR PRN Reason: Protocol Last Titration: 06/21/17 12:00 Dose: 0 units/hr Norepinephrine Bitartrate 8, (000 mcg/ Dextrose) 500 mls @ 18.75 mls/hr IV TITR NAVYA; 5 MCG/MIN PRN Reason: Protocol Last Admin: 06/21/17 05:24 Dose: 37.5 mls/hr Vancomycin HCl 1,250 mg/ (Dextrose) 250 mls @ 250 mls/hr IVPB DAILY@1600 NAVYA PRN Reason: Protocol Sodium Chloride (1/2 Normal Saline) 1,000 mls @ 100 mls/hr IV ASDIR NAVYA Last Admin: 06/21/17 09:00 Dose: 100 mls/hr Insulin Human Regular 100 (units/ Sodium Chloride) 100 mls @ 10 mls/hr IVPB TITR NAVYA; 10 UNITS/HR PRN Reason: Protocol Last Titration: 06/21/17 14:00 Dose: 8 units/hr Methylprednisolone Sodium Succinate (Solu-Medrol -) 40 mg IVPB Q8H-IV NAVYA Last Admin: 06/21/17 09:56 Dose: 40 mg Mupirocin (Bactroban Ointment (For Decolonization) -) 1 applic NS BID NAVYA Stop: 06/25/17 21:59 Last Admin: 06/21/17 09:56 Dose: 1 applic - Objective Vital Signs: Vital Signs Temperature 98.3 F 06/21/17 15:00 Pulse Rate 96 H 06/21/17 15:00 Respiratory Rate 30 H 06/21/17 15:00 Blood Pressure 122/77 06/21/17 15:00 O2 Sat by Pulse Oximetry (%) 100 06/21/17 08:00 Constitutional: Yes: Calm HENT: Yes: Other (s/p craneotomy) Cardiovascular: Yes: S1, S2 Respiratory: Yes: Mechanically Ventilated, Other (chest tube in place for pneumo ) Gastrointestinal: Yes: Soft Genitourinary: Yes: Briceno Present Musculoskeletal: Yes: Muscle Weakness Edema: Yes Edema: LUE: Trace, RUE: Trace Neurological: Yes: Lethargy Labs: CBC, BMP 06/21/17 05:10 INR, PTT INR 1.46 (0.82-1.09) H 06/20/17 16:00 - ....Imaging Chest X-ray: Report Reviewed Problem List - Problems (1) Acute respiratory failure Code(s): J96.00 - ACUTE RESPIRATORY FAILURE, UNSP W HYPOXIA OR HYPERCAPNIA (2) Pneumothorax, left Code(s): J93.9 - PNEUMOTHORAX, UNSPECIFIED (3) JENNIFER (acute kidney injury) Code(s): N17.9 - ACUTE KIDNEY FAILURE, UNSPECIFIED (4) Hypernatremia Code(s): E87.0 - HYPEROSMOLALITY AND HYPERNATREMIA Assessment/Plan Current Medications Generic Name Dose Route Start Last Admin Trade Name Freq PRN Reason Stop Dose Admin Artificial Tears 1 applic 06/21/17 00:15 06/21/17 09:56 Lacri-Lube Eye Ointment - OU 1 applic BID NAVYA Administration Chlorhexidine Gluconate 1 applic 06/20/17 22:00 06/20/17 22:14 Hibiclens For Decolonization - TP 1 applic HS NAVYA Administration Doxycycline Hyclate 100 mg/ 100 mls @ 100 mls/hr 06/20/17 22:00 06/21/17 09:57 Dextrose IVPB 100 mls/hr BID NAVYA Administration Vasopressin 50 units/ Sodium 100 mls @ 4.8 mls/hr 06/20/17 23:00 06/21/17 12:00 Chloride IVPB 0 units/hr ASDIR NAVYA Titration Protocol 2.4 UNITS/HR Norepinephrine Bitartrate 8, 500 mls @ 18.75 mls/hr 06/21/17 05:30 06/21/17 05: 24 000 mcg/ Dextrose IV 37.5 mls/hr TITR NAVYA Administration Protocol 5 MCG/MIN Vancomycin HCl 1,250 mg/ 250 mls @ 250 mls/hr 06/21/17 16:00 Dextrose IVPB DAILY@1600 NAVYA Protocol Sodium Chloride 1,000 mls @ 100 mls/hr 06/21/17 09:00 06/21/17 09:00 1/2 Normal Saline IV 100 mls/hr ASDIR NAVYA Administration Insulin Human Regular 100 100 mls @ 10 mls/hr 06/21/17 11:21 06/21/17 14:00 units/ Sodium Chloride IVPB 8 units/hr TITR NAVYA Titration Protocol 10 UNITS/HR Methylprednisolone Sodium Succinate 40 mg 06/21/17 02:00 06/21/17 09:56 Solu-Medrol - IVPB 40 mg Q8H-IV NAVYA Administration Mupirocin 1 applic 06/20/17 22:00 06/21/17 09:56 Bactroban Ointment (For Decolonization) - NS 06/25/17 21:59 1 applic BID NAVYA Administration Laboratory Tests 06/21/17 06/21/17 06/21/17 01:30 01:30 08:55 Sodium Potassium Creatinine 1.6 H Urine Osmolality 598 Urine Total Protein Pending Urine PEP Interpret Pending CHRIS M-Zach Pending KATHY Screen Pending c-ANCA Pending Proteinase 3 (PR3) Pending p-ANCA Pending Atypical p-ANCA Pending Myeloperoxidase Ab Pending Double Strand DNA Ab Pending 06/21/17 06/21/17 10:30 12:30 Sodium 176 H* Potassium 3.4 L Creatinine 1.5 H 1.4 H Urine Osmolality Urine Total Protein Urine PEP Interpret CHRIS M-Zach KATHY Screen c-ANCA Proteinase 3 (PR3) p-ANCA Atypical p-ANCA Myeloperoxidase Ab Double Strand DNA Ab Impression 1. hypernatremia 2. cerebral edema 3. s/p craniotomy and shunt 4. acute renal failure 5. acute respiratory failure 6. shock/hypotension 7. hypophosphatemia 8. hypokalemia 9. lactic acidosis Plan - renal function is improving - renal ultrasound negative for hydro - sodium is slowly improving - glucose is better controlled - can change 1/2 ns to d51/3 rd and monitor sodium - continue to monitor glucose - urine osm is elevated which speaks against DI - renal workup is in progress - pt will be transferred to [facility] today - neurosurgery follow up, discussed with Dr Mckoy - neurology follow up - hematology evaluation pending - pressor requirement improved - vent support - chest tube care - replace phos - replace potassium - FENa is about 0.46, which is consist with pre-renal disease. Pt did respond to fluids Dr Moore
[2017-06-21] MEDS ORDERED: DEXTROSE 5%-1/3 NS - 500 ML IV SCH (15:45)
[2017-06-21] MEDS ORDERED: VANCOMYCIN 1,250 MG in DEXTROSE 5%-WATER - 250 ML IVPB SCH (16:00)
--- NOTE | 2017-06-21 16:20 | DS ---
Physical Exam: SUBJECTIVE: Patient seen and examined OBJECTIVE: Vital Signs Period Temp Pulse Resp BP Sys/Wilson Pulse Ox Last 24 Hr 92.9 F-98.6 F 87-140 30-30 61-128/36-96 100-100 PHYSICAL EXAM Physical Exam: General: NAD, unresponsive, intubated Head: External ventricular drain in place, clear yellowish fluid in proximal drain with white/blood tinged matter. Distal drain empty HEENT: B/l pupils dilated (7mm) and fixed, not reactive to light Neck: subcutaneous emphasema above right clavicle Lungs: Decreased breath sounds on the left Heart: Tachycardia, S1S2 Abd: Soft, non-tender, non-distended : Briceno catheter in place Neuro: Flaccid extremities. Unresponsive to verbal or painful stimuli LABS Laboratory Results - last 24 hr 06/20/17 06/20/17 06/20/17 16:00 16:00 16:00 WBC 12.3 H RBC 4.29 Hgb 12.3 Hct 37.6 MCV 87.6 MCH 28.7 MCHC 32.8 RDW 14.2 Plt Count 180 MPV 8.9 Neutrophils % 79.2 Lymphocytes % 14.7 Monocytes % 5.9 Eosinophils % 0.0 Basophils % 0.2 PT with INR INR PTT (Actin FS) Sodium 182 H* Potassium 3.3 L Chloride 160 H* Carbon Dioxide 16 L Anion Gap 6 L BUN 24 H Creatinine 2.3 H Creat Clearance w eGFR 26.05 Random Glucose 370 H* Serum Osmolality Lactic Acid Calcium 8.4 L Phosphorus 0.6 L* Magnesium 3.1 H Total Bilirubin 0.3 AST 47 H ALT 39 Alkaline Phosphatase 59 Total Protein 6.6 Albumin 2.7 L Urine Color Urine Appearance Urine pH Ur Specific [place] Urine Protein Urine Glucose (UA) Urine Ketones Urine Blood Urine Nitrite Urine Bilirubin Urine Urobilinogen Ur Leukocyte Esterase Urine RBC Urine WBC Urine Bacteria Urine Mucus Urine Yeast Urine Eosinophils Urine Osmolality Ur Random Sodium Ur Random Potassium Ur Random Chloride Urine Creatinine Random Vancomycin Blood Type Antibody Screen 06/20/17 06/20/17 06/20/17 16:00 16:00 16:15 WBC RBC Hgb Hct MCV MCH MCHC RDW Plt Count MPV Neutrophils % Lymphocytes % Monocytes % Eosinophils % Basophils % PT with INR 16.50 H INR 1.46 H PTT (Actin FS) 102.8 H Sodium Potassium Chloride Carbon Dioxide Anion Gap BUN Creatinine Creat Clearance w eGFR Random Glucose Serum Osmolality Lactic Acid 2.9 H* Calcium Phosphorus Magnesium Total Bilirubin AST ALT Alkaline Phosphatase Total Protein Albumin Urine Color Urine Appearance Urine pH Ur Specific [place] Urine Protein Urine Glucose (UA) Urine Ketones Urine Blood Urine Nitrite Urine Bilirubin Urine Urobilinogen Ur Leukocyte Esterase Urine RBC Urine WBC Urine Bacteria Urine Mucus Urine Yeast Urine Eosinophils Urine Osmolality Ur Random Sodium Ur Random Potassium Ur Random Chloride Urine Creatinine Random Vancomycin Blood Type AB POSITIVE Antibody Screen Negative 06/20/17 06/20/17 06/20/17 22:05 22:05 22:05 WBC RBC Hgb Hct MCV MCH MCHC RDW Plt Count MPV Neutrophils % Lymphocytes % Monocytes % Eosinophils % Basophils % PT with INR INR PTT (Actin FS) Sodium 177 H* Potassium 3.2 L Chloride 154 H* Carbon Dioxide 15 L Anion Gap 8 BUN 22 H Creatinine 2.2 H Creat Clearance w eGFR 27.42 Random Glucose 511 H* D Serum Osmolality Lactic Acid Calcium 7.7 L Phosphorus Magnesium Total Bilirubin 0.4 D AST 50 H ALT 40 Alkaline Phosphatase 54 Total Protein 5.4 L Albumin 2.4 L Urine Color Ltyellow Urine Appearance Slcloudy Urine pH 6.0 Ur Specific [place] <= 1.005 Urine Protein Negative Urine Glucose (UA) 3+ H Urine Ketones Negative Urine Blood 1+ H Urine Nitrite Negative Urine Bilirubin Negative Urine Urobilinogen Negative Ur Leukocyte Esterase Negative Urine RBC 2 Urine WBC 3 Urine Bacteria Rare Urine Mucus Rare Urine Yeast Rare Urine Eosinophils Urine Osmolality Ur Random Sodium 18 Ur Random Potassium Ur Random Chloride Urine Creatinine Random Vancomycin Blood Type Antibody Screen 06/21/17 06/21/17 06/21/17 01:30 01:30 01:30 WBC RBC Hgb Hct MCV MCH MCHC RDW Plt Count MPV Neutrophils % Lymphocytes % Monocytes % Eosinophils % Basophils % PT with INR INR PTT (Actin FS) Sodium Potassium Chloride Carbon Dioxide Anion Gap BUN Creatinine Creat Clearance w eGFR Random Glucose Serum Osmolality Cancelled 382 H Lactic Acid Calcium Phosphorus Magnesium Total Bilirubin AST ALT Alkaline Phosphatase Total Protein Albumin Urine Color Urine Appearance Urine pH Ur Specific [place] Urine Protein Urine Glucose (UA) Urine Ketones Urine Blood Urine Nitrite Urine Bilirubin Urine Urobilinogen Ur Leukocyte Esterase Urine RBC Urine WBC Urine Bacteria Urine Mucus Urine Yeast Urine Eosinophils Cancelled Urine Osmolality Cancelled 598 Ur Random Sodium Ur Random Potassium Ur Random Chloride Urine Creatinine Random Vancomycin Blood Type Antibody Screen 06/21/17 06/21/1706/21/17 01:30 01:30 01:30 WBC RBC Hgb Hct MCV MCH MCHC RDW Plt Count MPV Neutrophils % Lymphocytes % Monocytes % Eosinophils % Basophils % PT with INR INR PTT (Actin FS) Sodium 176 H* Potassium 2.9 L* Chloride 149 H Carbon Dioxide 14 L Anion Gap 13 BUN 21 H Creatinine 2.1 H Creat Clearance w eGFR Random Glucose 459 H* Serum Osmolality Lactic Acid Calcium 7.8 L Phosphorus Magnesium Total Bilirubin AST ALT Alkaline Phosphatase Total Protein Albumin Urine Color Yellow Urine Appearance Cloudy Urine pH 5.0 Ur Specific [place] 1.015 Urine Protein Negative Urine Glucose (UA) 3+ H Urine Ketones Negative Urine Blood Negative Urine Nitrite Negative Urine Bilirubin Negative Urine Urobilinogen Negative Ur Leukocyte Esterase Negative Urine RBC Urine WBC Urine Bacteria Urine Mucus Urine Yeast Urine Eosinophils Urine Osmolality Ur Random Sodium 43 Ur Random Potassium 19.8 Ur Random Chloride 53 Urine Creatinine Random Vancomycin Blood Type Antibody Screen 06/21/17 06/21/17 06/21/17 01:30 05:10 05:10 WBC 11.1 H RBC 3.23 L D Hgb 9.4 L D Hct 27.6 L D MCV 85.4 MCH 29.0 MCHC 34.0 RDW 14.1 Plt Count 128 L D MPV 8.9 Neutrophils % 86.0 H Lymphocytes % 11.1 D Monocytes % 2.9 L Eosinophils % 0.0 Basophils % 0.0 PT with INR INR PTT (Actin FS) Sodium 177 H* Potassium 3.2 L Chloride 149 H Carbon Dioxide 16 L Anion Gap 12 BUN 20 H Creatinine 1.8 H Creat Clearance w eGFR 34.57 Random Glucose 355 H* D Serum Osmolality Lactic Acid Calcium 7.8 L Phosphorus 0.7 L* Magnesium 2.1 D Total Bilirubin 0.4 AST 43 H ALT 40 Alkaline Phosphatase 57 Total Protein 5.3 L Albumin 2.3 L Urine Color Urine Appearance Urine pH Ur Specific [place] Urine Protein Urine Glucose (UA) Urine Ketones Urine Blood Urine Nitrite Urine Bilirubin Urine Urobilinogen Ur Leukocyte Esterase Urine RBC Urine WBC Urine Bacteria Urine Mucus Urine Yeast Urine Eosinophils Urine Osmolality Ur Random Sodium Ur Random Potassium Ur Random Chloride Urine Creatinine 112.0 Random Vancomycin Blood Type Antibody Screen 06/21/17 06/21/17 06/21/17 05:10 05:10 08:55 WBC RBC Hgb Hct MCV MCH MCHC RDW Plt Count MPV Neutrophils % Lymphocytes % Monocytes % Eosinophils % Basophils % PT with INR INR PTT (Actin FS) Sodium 175 H* Potassium 3.3 L Chloride 151 H* Carbon Dioxide 18 L Anion Gap 6 L BUN 21 H Creatinine 1.6 H Creat Clearance w eGFR Random Glucose 238 H D Serum Osmolality Lactic Acid 3.3 H* Calcium 7.8 L Phosphorus Magnesium Total Bilirubin AST ALT Alkaline Phosphatase Total Protein Albumin Urine Color Urine Appearance Urine pH Ur Specific [place] Urine Protein Urine Glucose (UA) Urine Ketones Urine Blood Urine Nitrite Urine Bilirubin Urine Urobilinogen Ur Leukocyte Esterase Urine RBC Urine WBC Urine Bacteria Urine Mucus Urine Yeast Urine Eosinophils Urine Osmolality Ur Random Sodium Ur Random Potassium Ur Random Chloride Urine Creatinine Random Vancomycin 20.026 Blood Type Antibody Screen 06/21/17 06/21/17 06/21/17 10:30 12:30 14:45 WBC RBC Hgb Hct MCV MCH MCHC RDW Plt Count MPV Neutrophils % Lymphocytes % Monocytes % Eosinophils % Basophils % PT with INR INR PTT (Actin FS) Sodium 176 H* 176 H* 176 H* Potassium 3.4 L 3.4 L 3.5 Chloride 151 H* 147 H 147 H Carbon Dioxide 17 L 17 L 17 L Anion Gap 8 12 12 BUN 20 H 20 H 20 H Creatinine 1.5 H 1.4 H 1.3 H Creat Clearance w eGFR Random Glucose 179 H D 142 H D 92 D Serum Osmolality Lactic Acid Calcium 7.6 L 7.4 L 7.2 L Phosphorus Magnesium Total Bilirubin AST ALT Alkaline Phosphatase Total Protein Albumin Urine Color Urine Appearance Urine pH Ur Specific [place] Urine Protein Urine Glucose (UA) Urine Ketones Urine Blood Urine Nitrite Urine Bilirubin Urine Urobilinogen Ur Leukocyte Esterase Urine RBC Urine WBC Urine Bacteria Urine Mucus Urine Yeast Urine Eosinophils Urine Osmolality Ur Random Sodium Ur Random Potassium Ur Random Chloride Urine Creatinine Random Vancomycin Blood Type Antibody Screen HOSPITAL COURSE: Date of Admission:06/20/17 Date of Discharge: 06/21/17 This is a 26 year old female with no significant PMHx who was transferred to [facility] from [facility] in [facility] on . The patient was in good health with recent travels to [place]/ [place], [place] until 06/17. On Thursday, 06/15 she went on a hike and subsequently developed diffuse, mild headache and recovered. On 06/17, she became more confused with vomiting and was ataxic. On route to [facility] in the ambulance she had a seizure and was intubated and vented. Imaging at [facility] as follows: - CSF: WBC-3, RBCs-4285, Protein-419, Glucose-83. - CT head- 06/18-diffuse cerebral edema with complete sulcal effacement and effacement of suprasellar cistern, quadrigeminal plate and fourth ventricle. Findings have progressed significantly from 06/07 and compared to MRI performed 5 hours prior to this study. -CT Angiogram 06/18-Diffuse cerebral edema with no blood flow seen in either intracranial internal carotid artery or in post. circulation. - NM perfusion scan 06/19 documented in a family meeting as "no flow c/w brain ". - MRI C-spine 06/19- Cerebellar tonsils are herniated into the cervicomedullary junction with edema of the cord and central T2 hyperintensitylikely ischemia related to compression. According to palliative care notes from 06/19, the family was not accepting of the diagnosis of brain . The patient was transferred to [facility] where she had a head CT that showed subarachnoid hemorrhage and extra-axial air with evidence of increased intracranial pressure. No definite evidence of herniation. She had craniotomy and insertion of external ventricular drain with Dr. Mckoy on 06/20. Plan: 1) Brain (records from [facility]) - CTA head an neck 06/18/17: Diffuse cerebral edema with no blood flow seen in either intracranial internal carotid artery or in the posterior circularion - Nuclear medicine brain with vascular flow 06/18/17: No intracranial vascular activity. No flow above the skull base - Nuclear medicine brain with vascular flow 06/19/17: No flow is identified above the skull base, facial uptake is hot relative to the remainder of the head. No intracranial activity is present. Findings consistent with brain - MRI with contrast 06/19/17: Continued absence of intracranial venous flow is attributed to increased intracranial pressure - MRI cervical spine 06/19/17: Herniation of the cerebellar tonsils into the cervicomedullary canal causing effacement of CSF and indentation along the posterior aspect of the proximal cervical cord. The cord is edematous from C2- C4 and demonstrates intrinsic signal consistent with ischemia. Flow artifact is noted in the CSF posterior to the upper cervical cord 2) Cerebral edema - S/p craniotomy with decompression and external ventricular drain placement on 06/20/17 - No brainstem activity noted today 3) Respiratory failure - Remains intubated - Weaned off Vasopressin today - Remains on Levophed, maintain MAP >65 4) Large left pneumothorax - Emergent left pigtail placed this morning - Repeat chest x-ray with no pneumothorax s/p pigtail placement 5) Severe hypernatremia: - Per nephrology: no evidence of DI at this time - Continue 1/2NS @75cc/hr - Monitor BMP q2h 6) Hyperglycemia: - On Insulin gtt, titrate for BGM 140-180 - BGM q2h Discussed with Dr. Mckoy, plan for today was repeat CT head at 2pm and then Dr. Mckoy would perform repeat neuro exam. Per Dr. Mckoy's discussion with family, they are requesting transfer to [facility] and do not want any further imaging here. Per Dr. Mckoy, Dr. Akhil Salas is accepting physician at [facility]. is aware of transfer. Minutes to complete discharge: 25 Discharge Summary Current Active Problems JENNIFER (acute kidney injury) (Acute) Acute respiratory failure (Acute) Brain (Acute) Hypernatremia (Acute) Pneumothorax, left (Acute) - Home Medications Comprehensive Discharge Medication List: Ambulatory Orders Phentermine HCl 06/20/17 Topamax 06/20/17 Zoloft 06/20/17 This patient is new to me today: Yes Date on this admission: 06/21/17 Emergency Visit: No Critical Care patient: Yes Total Critical Care Time (in minutes): 65 Critical Care Statement: The care of this patient involved high complexity decision making to prevent further life threatening deterioration of the patient 's condition and/or to evaluate & treat vital organ system(s) failure or risk of failure. - Discharge Referral Referred to [facility] Med P.C.: No
[2017-06-21] MEDS ORDERED: NOREPINEPHRINE BITARTRATE 4 MG/4 ML ML IV ONE (16:24)
[2017-06-21 18:07] VITALS: BP 126/76; PULSE 97; TEMP 98.2
[2017-06-23 00:17] LABS: ALBUMIN 2.6 g/dL (2.9-4.4); GLOBULIN, TOTAL 2.5 g/dL (2.2-3.9); M-SPIKE Not Observed g/dL (Not Observed); TOTAL PROTEIN 5.1 g/dL (6.0-8.5)
[2017-06-23 16:32] LABS: ALBUMIN FOR UPE 44.3 % (.); GAMMA GLOBULIN % 19.2 % (.); M-SPIKE, % Not Observed % (Not Observed)
[2017-06-24 00:06] LABS: C-ANCA <1:20 titer (Neg:<1:20); MYELOPEROXIDASE ANTIBODY <9.0 U/mL (0.0-9.0); P-ANCA <1:20 titer (Neg:<1:20); PROTEINASE-3 ANTIBODY <3.5 U/mL (0.0-3.5)
== END 2017-06-21 16:45 | disposition short-term general hospital (02) | DRG 21 ==
LOC: JICU 15:17
PROVIDERS: ADMIT Internal Medicine; ATTEND Registered Nurse
PROC: 00NC0ZZ Release Cerebellum, Open Approach (ICD-10-PCS; 2017-06-20)
PROC: 0JR007Z Replacement of Scalp Subcutaneous Tissue and Fascia with Autologous Tissue Substitute, Open Approach (ICD-10-PCS; 2017-06-20)
PROC: 5A1935Z Respiratory Ventilation, Less than 24 Consecutive Hours (ICD-10-PCS; 2017-06-20)
PROC: 009600Z Drainage of Cerebral Ventricle with Drainage Device, Open Approach (ICD-10-PCS; principal; 2017-06-20 17:35)
DX: G04.81 Other encephalitis and encephalomyelitis (principal); G93.6 Cerebral edema; I60.8 Other nontraumatic subarachnoid hemorrhage; J96.00 Acute respiratory failure, unspecified whether with hypoxia or hypercapnia; G93.5 Compression of brain; R57.8 Other shock; E23.2 Diabetes insipidus; E87.0 Hyperosmolality and hypernatremia; N17.9 Acute kidney failure, unspecified; F90.8 Attention-deficit hyperactivity disorder, other type; I95.89 Other hypotension; E83.39 Other disorders of phosphorus metabolism; E87.6 Hypokalemia; E87.2 Acidosis; R00.0 Tachycardia, unspecified; R68.0 Hypothermia, not associated with low environmental temperature; J93.83 Other pneumothorax; L65.8 Other specified nonscarring hair loss; E11.65 Type 2 diabetes mellitus with hyperglycemia; Z88.0 Allergy status to penicillin; Z99.11 Dependence on respirator [ventilator] status
CPT/HCPCS: 36415; 70450-TC; 71010-TC; 76775-TC; 76856-TC; 80048; 80053; 81003; 81015; 82436; 82570; 83520; 83605; 83735; 83930; 83935; 84100; 84133; 84155; 84156; 84157; 84165; 84300; 85025; 85610; 85730; 86038; 86225; 86256; 86850; 86900; 86901; 87040; 87070; 87205; 94002; G0480